=== PATIENT | male | born 1950 ===

== ENCOUNTER 2017-02-28 19:12 | Emergency (ER) | payer MEDICARE ==
[2017-02-28] MEDS ORDERED: Methocarbamol 500 MG Tab ONE (19:35)
[2017-02-28] MEDS ORDERED: Amoxicillin/Clavulanate K 875-125 MG Tab ONE (19:35)
--- NOTE | 2017-02-28 20:15 | EDM.PDOC ---
ED HPI GENERAL MEDICAL PROBLEM - General Chief Complaint: Eye Problems Stated Complaint: INJURY TO LT EYE,SCRAPE TO HEAD AND NECK PAIN Time Seen by Provider: 02/28/17 19:15 Source of Information: Reports: Patient History Limitations: Reports: No Limitations - History of Present Illness INITIAL COMMENTS - FREE TEXT/NARRATIVE: This is a 66yo M who was fishing and noticed a bite and jumped to get his kendell when he slipped forward and hit his head on the wall edge and his left face. He states he has a stiff neck and he has a noticeable large bruise of the left eye. He has a gash of the scalp at the apex and states his Tetanus is up to date. Denies any loss of consciousness or other concerns. Denies any headache. Onset: Sudden Location: Reports: Head, Face Quality: Reports: Ache Severity: Moderate Improves with: Reports: None Worsens with: Reports: None Associated Symptoms: Reports: No Other Symptoms - Related Data Allergies Allergy/AdvReac Type Severity Reaction Status Date / Time cefaclor [From [facility]] Allergy Rash Verified 02/28/17 19:50 ED ROS GENERAL - Review of Systems Review Of Systems: ROS reveals no pertinent complaints other than HPI. ED EXAM GENERAL W FULL EYE - Physical Exam Exam: See Below Exam Limited By: No Limitations General Appearance: Alert, WD/WN, No Apparent Distress Eye Exam: Bilateral Eye: EOMI, PERRL (no pain with eye movements) Conjunctiva & Sclera: Left: Normal Appearance Extraocular Movements: Bilateral: Intact Pupils: Normal Accommodation Pupillary Size: Bilateral: 4 mm Pupillary Reaction: Bilateral: Brisk Anterior Chamber: Bilateral: Normal Appearance Ears: Normal External Exam Nose: Normal Inspection Throat/Mouth: Normal Inspection Head: Facial Swelling, Facial Tenderness, Other (laceration of the scalp 15cm) Respiratory/Chest: No Respiratory Distress Cardiovascular: Normal Peripheral Pulses GI/Abdominal: Normal Bowel Sounds Skin Exam: Ecchymosis, Wound/Incision ED EYE w/ Add Procedure - Additional/Other Procedure(s) Other (Free Text) Procedure(s) [Text1]: Scalp prepped sterilely. Hair cut around the laceration site. Wound cleaned and sterilized. 8 Fracisco used with good approximation and no complications. Departure - Departure Time of Disposition: 20:15 Disposition: Home, Self-Care 01 Condition: Good Clinical Impression: Laceration of scalp Qualifiers: Encounter type: initial encounter Qualified Code(s): S01.01XA - Laceration without foreign body of scalp, initial encounter Bruise of eye Qualifiers: Encounter type: initial encounter Laterality: left Qualified Code(s): S05.12XA - Contusion of eyeball and orbital tissues, left eye, initial encounter Neck muscle strain Qualifiers: Encounter type: initial encounter Qualified Code(s): S16.1XXA - Strain of muscle, fascia and tendon at neck level, initial encounter - Discharge Information Instructions: Laceration Care, Adult Referrals: PCP,None [Primary Care Provider] - Forms: ED Department Discharge Additional Instructions: Amoxicillin/Claulanate 875/125 take one tab twice a day x 10 days. Return to clinic to have fracisco removed in 7 days Methocarbanol 500mg take one tab every 6 hours for neck pain counseled on antibiotic ointment use, care of wound, follow up closely if any eye pain develops, any blurriness develops, any eye concerns develop. Return to ER as directed if any complications.
== END 2017-02-28 19:53 | disposition home or self-care (01) ==
LOC: LB.ED 19:12
DX: S01.01XA Laceration without foreign body of scalp, initial encounter (principal); S05.12XA Contusion of eyeball and orbital tissues, left eye, initial encounter; S16.1XXA Strain of muscle, fascia and tendon at neck level, initial encounter; Z88.1 Allergy status to other antibiotic agents; W01.198A Fall on same level from slipping, tripping and stumbling with subsequent striking against other object, initial encounter
CPT/HCPCS: 12005; 99283; A9270